=== PATIENT | female | born 2000 ===

== ENCOUNTER 2022-07-09 13:04 | Emergency (ER) | payer MEDICAID, OTHER ==
[~2022-07-09] VITALS: Ht 162.6 cm; Wt 49.5 kg
[2022-07-09 14:35] VITALS: BP 114/76
[2022-07-09] MEDS ORDERED: cefTRIAXone SOD 1,000 MG VL IM ONE (14:45)
[2022-07-09] MEDS ORDERED: LIDO2SOL23 MT (14:54)
[2022-07-09] MEDS ORDERED: AZIT250T8 PO (14:54)
== END 2022-07-09 14:59 | disposition home or self-care (01) ==
LOC: ER 13:04
DX: J03.90 Acute tonsillitis, unspecified (principal)
CPT/HCPCS: 96372; 99283; J0696

== ENCOUNTER 2022-07-11 14:28 | Emergency (ER) | payer MEDICAID ==
[~2022-07-11] VITALS: Ht 162.6 cm; Wt 48.2 kg
[~2022-07-11 14:28] MED LIST: AZIT-81 PO; LIDO2SOL26 MT
[2022-07-11] MEDS ORDERED: AMOX400S53 PO (16:35)
[2022-07-11] MEDS ORDERED: PRED15SO26 PO (16:35)
[2022-07-11 16:40] VITALS: BP 116/78
== END 2022-07-11 16:43 | disposition home or self-care (01) ==
LOC: ER 14:28
DX: J03.90 Acute tonsillitis, unspecified (principal); Z79.2 Long term (current) use of antibiotics; Z79.899 Other long term (current) drug therapy